=== PATIENT | male | born 1950 | race Caucasian/White ===

== ENCOUNTER 2017-07-20 18:14 | Emergency (ER) | payer BC ==
[~2017-07-20] VITALS: Ht 188 cm; Wt 106.5 kg
[2017-07-20] MEDS ORDERED: MOTRIN800 MG PO (21:53)
[2017-07-20] MEDS ORDERED: VALIUM5 MG PO (21:53)
[2017-07-20] MEDS ORDERED: NORCO 10/3251 TABLET PO (21:53)
[2017-07-20 22:51] VITALS: BP 159/86
== END 2017-07-20 22:54 | disposition home or self-care (01) ==
LOC: EME 18:14
DX: G57.02 Lesion of sciatic nerve, left lower limb (principal); M54.32 Sciatica, left side; F17.200 Nicotine dependence, unspecified, uncomplicated; I10 Essential (primary) hypertension; F41.9 Anxiety disorder, unspecified
CPT/HCPCS: 93005; 99281; 99285; J1100; J3010

== ENCOUNTER 2017-07-23 05:04 | Emergency (ER) | payer BC ==
[~2017-07-23] VITALS: Ht 188 cm; Wt 104.5 kg
[~2017-07-23 05:04] MED LIST: MOTRIN800 MG PO; NORCO 10/3251 TABLET PO; VALIUM5 MG PO
[2017-07-23 06:29] LABS: BASOPHIL (%) 0.3 % (0-1); EOSINOPHIL (%) 0.7 % (0-5); EOSINOPHIL COUNT 0.1 K/uL (0-0.3); HEMATOCRIT 45.6 % (38.0-50.0); HEMOGLOBIN 15.8 G/DL (12.5-16.6); IMMATURE GRANULOCYTE (%) 0.9 % (0.0-0.7); LYMPHOCYTE (%) 21.7 % (15-42); LYMPHOCYTE COUNT 2.1 K/uL (1.0-2.8); MCH 32.7 PG (29.0-34.0); MCHC 34.6 G/DL (30.0-36.0); MCV 94.4 FL (86-99); MONOCYTE (%) 7.6 % (3-12); MONOCYTE COUNT 0.7 K/uL (0-0.8); NEUTROPHIL (%) 68.8 % (45-76); NEUTROPHIL COUNT 6.7 K/uL (1.8-6.4); PLATELET COUNT 163 K/uL (156-360); RBC DIS.WIDTH-CV 12.6 % (11.8-14.6); RBC DIS.WIDTH-SD 43.7 % (39-53); RED BLOOD COUNT 4.83 M/uL (4.00-5.50); WHITE BLOOD COUNT 9.7 K/uL (4.1-10.2)
[2017-07-23 06:39] LABS: CHLORIDE 103 mEq/L (99-109); POTASSIUM 3.6 mEq/L (3.7-5.4); SODIUM 138 mEq/L (136-147)
[2017-07-23 06:41] LABS: GLUCOSE 97 mg/dL (70-99)
[2017-07-23 06:45] LABS: GFR ESTIMATE (CALCULATED) > 59 mL/min/ (58.99-99999)
[2017-07-23 06:46] LABS: UREA NITROGEN (BUN) 17 mg/dL (9-23)
[2017-07-23 07:21] LABS: ERTH.SED.RATE 10 MM/HR (0-20)
[2017-07-23] MEDS ORDERED: MEDROL DOSEPAK4 MG PO (07:44)
[2017-07-23] MEDS ORDERED: ROBAXIN750 MG PO (07:44)
[2017-07-23 08:26] VITALS: BP 114/71
== END 2017-07-23 08:44 | disposition home or self-care (01) ==
LOC: EME → EDBD 05:04 → EME 05:04
PROVIDERS: Physician Assistant
DX: M54.42 Lumbago with sciatica, left side (principal); I10 Essential (primary) hypertension; F17.200 Nicotine dependence, unspecified, uncomplicated
CPT/HCPCS: 80048; 85025; 85652; 99281; 99284; J2270; J2405; J7030

== ENCOUNTER → 2017-08-27 | Outpatient (CLI) | payer BC ==
[~2017-08-27] MED LIST changes: +MEDROL DOSEPAK4 MG PO; +ROBAXIN750 MG PO
== END | disposition home or self-care (01) ==
LOC: RAD 13:50
PROC: 3E0R3KZ Introduction of Other Diagnostic Substance into Spinal Canal, Percutaneous Approach (ICD-10-PCS; principal; 2017-08-27)
DX: M51.36 Other intervertebral disc degeneration, lumbar region (principal); R53.1 Weakness; M12.88 Other specific arthropathies, not elsewhere classified, other specified site; M48.061 Spinal stenosis, lumbar region without neurogenic claudication; M47.816 Spondylosis without myelopathy or radiculopathy, lumbar region
CPT/HCPCS: 62304; 72132

== ENCOUNTER → 2017-11-14 | Outpatient (CLI) | payer BC | END | disposition home or self-care (01) | LOC: RAD 13:43 | DX: M43.06 Spondylolysis, lumbar region (principal); M51.26 Other intervertebral disc displacement, lumbar region; M12.88 Other specific arthropathies, not elsewhere classified, other specified site; M46.06 Spinal enthesopathy, lumbar region; M46.96 Unspecified inflammatory spondylopathy, lumbar region; M48.07 Spinal stenosis, lumbosacral region; Z98.890 Other specified postprocedural states | CPT/HCPCS: 62304; 72132 ==